=== PATIENT | male | born 1950 | race Caucasian/White ===

== ENCOUNTER 2019-05-12 12:46 | Outpatient (CLI) | payer OTHER, SELFPAY ==
--- NOTE | 2019-05-12 12:56 | CT_ITS ---
WS: [id number] CT ABDOMEN AND PELVIS WITH CONTRAST HISTORY: PAPILLARY UROTHELIAL CARCINOMA TECHNIQUE: Imaging performed of the abdomen and pelvis with IV contrast. Single phase imaging of the abdomen. Coronal and sagittal reformats are submitted. All CT scans at [facility] use at least one of these dose optimization techniques: automated exposure control; mA and/or kV adjustment per patient size (includes targeted exams where dose is matched to clinical indication); or iterativ e reconstruction. IV CONTRAST: Visipaque 320; 95 mL IV. Oral contrast: No DLP: 1456.68 mGy.cm COMPARISON: 01/20/2019 Lower thorax: Lung bases are clear. Heart is normal size. No hiatal hernia. Liver/biliary system: Normal size with no intrahepatic dilatation. Gallbladder: Normal. No gallstones or wall thickening. No pericholecystic fluid. Pancreas: Normal. Spleen: Normal. Adrenal glands: Normal. Right kidney: Status post RIGHT nephrectomy. No mass of the renal bed. Left kidney: Normal. Aorta: Mild atherosclerosis. Calcified plaque and intimal thickening. No aneurysm. Calcified plaque a t the origin of the LEFT renal artery. Lymphadenopathy: None. Free fluid: None. GI tract: Unremarkable. Abdominal wall: Small fat-containing umbilical hernia. Pelvis: Normal. Bones: Prior LEFT hip arthroplasty. CT/CT abdomen pelvis w con* [id number] IMPRESSION: 1. Status post RIGHT nephrectomy. No recurrent mass or adenopathy in the renal bed. 2. Negative LEFT kidney. 3. Mild atherosclerosis aorta. No aneurysm.
[2019-05-12] MEDS: iohexol 300 mg/mL 50 mL Btl PO (13:12)
[2019-05-12 13:56] LABS: Basophils # 0.1 10^3/uL (0.0-0.1); Basophils % 0.7 %; Eosinophils # 0.2 10^3/uL (0.0-0.8); Eosinophils % 2.6 %; Hematocrit 41.8 % (42.0-52.0); Hemoglobin 14.2 g/dL (11.7-16.6); Lymphocytes # 2.1 10^3/uL (0.8-4.8); Lymphocytes % 29.8 %; Mean Corpuscular Hemoglobin 32.6 pg (28.0-34.0); Mean Corpuscular Volume 95.9 fL (80-94); Mean Platelet Volume 11.2 fL (7.4-10.4); Monocytes # 0.7 10^3/uL (0.2-0.9); Monocytes % 9.3 %; Neutrophils # 4.1 10^3/uL (1.8-7.7); Neutrophils % 57.3 %; Nucleated Red Blood Cells % 0 %; Platelet Count 236 10^3/cmm (130-400); Red Blood Count 4.36 10^6/uL (4.1-5.3); Red Cell Distribution Width 11.9 % (12.1-15.1); White Blood Count 7.2 10^3/uL (4.0-10.0)
[2019-05-12 14:05] LABS: Alanine Aminotransferase 13 U/L (0-41); Alkaline Phosphatase 110 IU/L (40-130); Anion Gap 15.3 (5-19); Aspartate Amino Transferase 20 U/L (0-40); Blood Urea Nitrogen 19 mg/dL (8-23); Calcium 9.8 mg/dL (8.5-10.5); Carbon Dioxide 27 mmol/L (22-29); Chloride 101 mmol/L (98-107); Globulin 3.4 g/dL (1.3-4.6); Glomerular Filtration Rate 50.5 mL/min (90-130); Glucose 110 mg/dL (65-115); Potassium 4.3 mmol/L (3.5-5.1); Sodium 139 mmol/L (136-145); Total Bilirubin 0.5 mg/dL (0.15-1.2); Total Protein 7.4 g/dL (6.6-8.7)
[2019-05-12] MEDS: iodixanol 320 mg/mL 100mL Btl IV (14:27)
== END 2019-05-12 12:47 | disposition home or self-care (01) ==
LOC: CT 12:48
PROVIDERS: Family Provider Emergency Medicine Emergency Medical Services; PCP Emergency Medicine Emergency Medical Services; Visit Provider Internal Medicine Hematology & Oncology
DX: C65.1 Malignant neoplasm of right renal pelvis (principal); I25.10 Atherosclerotic heart disease of native coronary artery without angina pectoris; Z90.5 Acquired absence of kidney
CPT/HCPCS: 36415; 74177; 80053; 85025

== ENCOUNTER 2019-05-14 13:06 | Outpatient (CLI) | payer OTHER, SELFPAY ==
--- NOTE | 2019-05-14 14:11 | ONC FU_ITS ---
Dr. Jimenes follow up note Patient: Gordon Frost Unit #: [id number]: 1950 Dicatated By: Jimi Jimenes M.D.Date of Visit:May 14, 2019 Onc Med Follow-up/Prog Note History of Present Illness: Mr. Gordon frost, is a 69-year-old gentleman with history of microhematuria, underwent cystoscope evaluation which showed rare groups of urothelial cells with mild atypia, suspicious for low-grade papillary lesion. further evaluation including CT scan of abdomen pelvis was done on 07/17/2018 showed questionable right mid kidney posterior calyceal soft tissue prominence. And on 07/25/2018 patient underwent cystoscopy with right retrograde ureteropyelogram and right flexible ureteroscopy with biopsy by Dr. Gilbert. Which showed high-grade papillary urothelial carcinoma, patient underwent right nephroureterectomy on 09/06/2018 and final pathology report showed 3.2 x 1.5 x 1 cm papillary urothelial carcinoma, invasive high-grade and tumor invades renal parenchyma. Surgical margins clear. No lymphovascular invasion seen. No lymph nodes were assessed. Patient tolerated procedure well Postoperatively developed urine retention and severe lower abdominal pain requiring catheterization and still using it Patient is hard of hearing, he is a , said hearing loss is a job-related problem. Pathology was reviewed at pathology department at [facility] on 10/14/2018 as a part of consult and it confirmed that there was no renal parenchymal involvement thus lesion was downgraded to T2 from T3 originally from [place] biopsy report. Due to that he was not a candidate for adjuvant Keytruda clinical trial. And Dr. Flanagan recommended observation alone. Follow-up CT scan of abdomen pelvis done on 01/21/2019 showed status post right nephrectomy since prior study done on 07/17/2018 No adenopathy or residual mass in the right renal bed No adenopathy ascites or metastatic disease seen. Follow-up CT scan of the abdomen pelvis done on 05/12/2019 showed status post right nephrectomy, no concurrent mass or adenopathy in the renal bed. Negative left kidney. Came for follow-up, denies any specific complaints, no nausea vomiting, no fever or chills, no hematuria or dysuria, no abdominal pain or bony pains. Recently underwent CT scan of abdomen pelvis, and he is here to discuss. Medications: Amoxicillin-Pot Clavulanate 1 Tablet (of 875-125 mg) Oral q 12 hours for 7 days, Omeprazole 1 Capsule (of 20 mg) Capsule Delayed Release Oral daily, traZODone HCl 0.5 Tablet (of 50 mg) Oral at bedtime Allergies: No Known Allergies. Review of Systems: Constitutional - Appetite is fair and weight is stable. No fever, chills, hot flashes, or night sweats. Energy level is fair, ENMT - No sinus congestion/drainage. No mouth sores. No sore throat or difficulty swallowing, Hematologic/Lymphatic - No abnormal bruising or bleeding, Respiratory - No shortness of breath. No cough. No pleuritic pain or hemoptysis, Cardiovascular - No angina pain. No palpitations, Gastrointestinal - No nausea or vomiting. Positive for heartburn, no acid reflux. No diarrhea or constipation. No blood in the stool or black stools, Genitourinary (M) - Pt denies any urinary issues, Musculoskeletal - Joint stiffness, Neurologic - No headache or dizziness. No numbness/paresthesias or other focal neurologic symptoms, Psychiatric - Positive for stress/anxiety, no depression. No insomnia. Vital Signs: Performed on May 14, 2019 13:15 Height - 73.00 in Weight - 195.0 lbs BSA - 2.13 sq.m BMI - 25.73 Temperature - 99.0 F (HIGH) Pulse - 71 /min Respiration - 18 /min BP - 140/85 mm(hg) O2 Sat - 98 % Pain - 0 Performance Status: 0 - Fully active, able to carry on all predisease activities without restrictions. (ECOG) Physical Examination: ENMT - No oral exudates, ulcers, masses, thrush or mucositis. Oropharynx clear. Tongue normal, Respiratory - Lungs are clear to auscultation without rhonchi or wheezing, Cardiovascular - Regular rate and rhythm of heart, Abdomen - Non-tender, non-distended, Good bowel sounds. No guarding or rebound tenderness. No pulsatile masses, Extremities - no edema. Lab/Imaging: Test performed on Jan 20, 2019 10:29 Ua Color STRAW Ua Appearance CLEAR Ua pH 6.5 Ua Specific [place] 1.010 Ua Glucose NORM Ua Ketones NEG Ua Protein NEG Ua Blood NEG Ua Bilirubin NEG Colored urine samples may result in false positive dipstick reactions. Ua Nitrites NEG Ua Leukocyte Esterase NEG Ua Micro: WBC NONE /hpf Ua Micro: RBC NONE /hpf Ua Micro: Squam Epith Cells RARE /hpf Ua Micro: Bacteria TRACE Ua Micro: Mucous TRACE Test performed on Jan 20, 2019 10:24 Sodium 140 mmol/L Potassium 4.4 mmol/L Chloride 103 mmol/L CO2 26 mmol/L Anion Gap 15.4 BUN 18 mg/dL Creatinine 1.4 mg/dL Cr Clearance (Est) 64.94 mL/min eGFR 50.7 mL/min Glucose 110 mg/dl Calcium 9.9 mg/dL Protein, Total 7.1 g/dL Albumin 5.0 g/dL Globulin 2.1 gm/dL Bilirubin, Total 0.2 mg/dL ALT (SGPT) 21 U/L AST (SGOT) 24 U/L Alkaline Phosphatase 102 U/L RBC 4.49 10 6/cmm HGB 14.4 g/dl HCT 41.6 % MCH 32.2 pg MCHC 34.7 g/dl RDW 12.9 % Platelet Count 224 10 3/cmm MPV 9.2 fl Neutrophils 3.3 10 3/cmm Lymphocytes 1.9 10 3/cmm Monocytes 0.6 10 3/cmm Eosinophils 0.3 10 3/cmm Basophils 0.1 10 3/cmm Neutrophil % 53.4 % Lymphocyte % 31.2 % Monocyte % 9.2 % Eosinophil % 5.0 % Basophils % 1.2 % Impression: Papillary urothelial carcinoma, invasive, high-grade involving right renal pelvis, status post right nephroureterectomy done on 09/06/2018 Final pathology report showed 3.2 x 1.5 x 1 cm tumor involving renal pelvis, clear surgical margins T3 As per pathology consult at pathology department at [facility] done on 10/14/2018, there was no evidence of parenchymal involvement so tumor was downgraded to T2 No lymphovascular invasion seen No lymph node sampling was done Nx, MX stage III History of hearing loss now using hearing aid bilaterally^ ]Mild renal insufficiency Plan: Discussed with patient regarding his labs from 05/12/2019 shows white blood count 7.3 hemoglobin 14.2 crit 41.8 platelets 236,000 with a normal differential CMP within normal limit except creatinine 1.4 compared to 1.4 in December 2018. Clinically, patient is doing well with no signs symptoms suggestive of recurrence of disease and his follow-up CT scan scan of abdomen pelvis done on 05/12/2019 showed no evidence of recurrence of disease. His lab workup is within normal range except mild but stable renal insufficiency. Patient is scheduled see Dr. Fields regulatory internship for evaluation and management of mild renal insufficiency. Patient return to clinic in 4 months with CBC CMP and CT scan of abdomen pelvis with low-dose contrast and renal precautions. Signed By: Jimi Jimenes M.D. <<Signature on File>>
== END 2019-05-14 13:07 | disposition home or self-care (01) ==
LOC: ONCMED 13:09
PROVIDERS: Family Provider Emergency Medicine Emergency Medical Services; PCP Emergency Medicine Emergency Medical Services; Visit Provider Internal Medicine Hematology & Oncology
DX: Z08 Encounter for follow-up examination after completed treatment for malignant neoplasm (principal); Z85.528 Personal history of other malignant neoplasm of kidney; R33.9 Retention of urine, unspecified; N18.2 Chronic kidney disease, stage 2 (mild); Z90.5 Acquired absence of kidney
CPT/HCPCS: G0463

== ENCOUNTER 2019-09-11 07:55 | Outpatient (CLI) | payer OTHER, SELFPAY ==
[2019-09-11] MEDS: sodium chloride 0.9% 500 ML IV (08:20)
[2019-09-11 08:28] LABS: Basophils # 0.1 10^3/uL (0.0-0.1); Basophils % 1.3 %; Eosinophils # 0.3 10^3/uL (0.0-0.8); Eosinophils % 5.1 %; Hematocrit 43.3 % (42.0-52.0); Hemoglobin 14.7 g/dL (11.7-16.6); Lymphocytes # 1.9 10^3/uL (0.8-4.8); Mean Corpuscular HGB Conc 33.9 g/dL (30.0-36.0); Mean Corpuscular Hemoglobin 31.7 pg (28.0-34.0); Mean Corpuscular Volume 93.3 fL (80-94); Monocytes # 0.7 10^3/uL (0.2-0.9); Monocytes % 10.7 %; Neutrophils # 3.3 10^3/uL (1.8-7.7); Neutrophils % 52.7 %; Nucleated Red Blood Cells % 0 %; Platelet Count 257 10^3/cmm (130-400); Red Blood Count 4.64 10^6/uL (4.1-5.3); White Blood Count 6.3 10^3/uL (4.0-10.0)
[2019-09-11 08:41] LABS: Alanine Aminotransferase 21 U/L (0-41); Albumin Level 4.3 g/dL (3.5-5.2); Alkaline Phosphatase 111 IU/L (40-130); Anion Gap 15.2 (5-19); Aspartate Amino Transferase 26 U/L (0-40); Blood Urea Nitrogen 20 mg/dL (8-23); Calcium 9.5 mg/dL (8.5-10.5); Carbon Dioxide 26 mmol/L (22-29); Chloride 102 mmol/L (98-107); Glomerular Filtration Rate 55.1 mL/min (90-130); Glucose 107 mg/dL (65-115); Osmolality Calculated 285 mOsm/kg (285-295); Potassium 4.2 mmol/L (3.5-5.1); Sodium 139 mmol/L (136-145); Total Bilirubin 0.3 mg/dL (0.15-1.2); Total Protein 7.3 g/dL (6.6-8.7)
--- NOTE | 2019-09-11 09:26 | CT_ITS ---
WS: [id number] CT abdomen pelvis w con* [id number] REASON FOR EXAM: PAPILLARY UROTHELIAL CARCINIOMA IV CONTRAST ADMINISTERED: Omnipaque 300, 95 mL. TOTAL EXAM DLP: 1227.[address] scans at [facility] use at least one of these dose optimization techniques: automat ed exposure control; mA and/or kV adjustment per patient size (includes targeted exams where dose is matched to clinical indication); or iterative reconstruction. FINDINGS: The lung bases and lower mediastinum were normal. The liver show normal attenuation changes no enhancing masses are seen. The gallbladder was normal no stones. The head, body, tail of pancreas were normal. The stomach spleen were normal. The right and left adrenal glands were normal. There is surgical absence of the left kidney. There is no recurrent lesion seen in the fossa on the r ight side there is: Showing fecal stasis in the area. The appendix was normal. The small bowel pattern show no abnormalities. The left colon was normal. The urinary bladder was normal The arthroplasty changes of the left hip. The bony pelvis show no destructive changes. The lumbar spine show normal architecture no metastatic changes. CT/CT abdomen pelvis w con* [id number] IMPRESSION: Comparison to previous exam exposed 07/11/2019 there is evidence of nephrectomy changes on the right with no recurrent lesion seen. The left kidney again is seen to be normal. No evidence to suggest metastatic disease.
[2019-09-11] MEDS: iohexol 300 mg/mL 100 mL Btl IV (10:58)
== END 2019-09-11 07:56 | disposition home or self-care (01) ==
LOC: ONCMED 07:56
PROVIDERS: PCP Emergency Medicine Emergency Medical Services; Visit Provider Internal Medicine Hematology & Oncology
DX: C65.1 Malignant neoplasm of right renal pelvis (principal); N40.1 Benign prostatic hyperplasia with lower urinary tract symptoms; R35.0 Frequency of micturition; R39.15 Urgency of urination; K21.9 Gastro-esophageal reflux disease without esophagitis; H91.93 Unspecified hearing loss, bilateral; G47.00 Insomnia, unspecified; M19.90 Unspecified osteoarthritis, unspecified site
CPT/HCPCS: 74177; 80053; 85025; 96360; J7040; Q9967

== ENCOUNTER 2019-09-15 13:14 | Outpatient (CLI) | payer OTHER, SELFPAY ==
--- NOTE | 2019-09-15 13:54 | ONC FU_ITS ---
Dr. Jimenes follow up note Patient: Gordon Frost Unit #: [id number]: 1950 Dicatated By: Jimi Jimenes M.D.Date of Visit:Sep 15, 2019 Onc Med Follow-up/Prog Note History of Present Illness: Mr. Gordon frost, is a 69-year-old gentleman with history of microhematuria, underwent cystoscope evaluation which showed rare groups of urothelial cells with mild atypia, suspicious for low-grade papillary lesion. further evaluation including CT scan of abdomen pelvis was done on 07/17/2018 showed questionable right mid kidney posterior calyceal soft tissue prominence. And on 07/25/2018 patient underwent cystoscopy with right retrograde ureteropyelogram and right flexible ureteroscopy with biopsy by Dr. Gilbert. Which showed high-grade papillary urothelial carcinoma, patient underwent right nephroureterectomy on 09/06/2018 and final pathology report showed 3.2 x 1.5 x 1 cm papillary urothelial carcinoma, invasive high-grade and tumor invades renal parenchyma. Surgical margins clear. No lymphovascular invasion seen. No lymph nodes were assessed. Patient tolerated procedure well Postoperatively developed urine retention and severe lower abdominal pain requiring catheterization and still using it Patient is hard of hearing, he is a , said hearing loss is a job-related problem. Pathology was reviewed at pathology department at [facility] on 10/14/2018 as a part of consult and it confirmed that there was no renal parenchymal involvement thus lesion was downgraded to T2 from T3 originally from [place] biopsy report. Due to that he was not a candidate for adjuvant Keytruda clinical trial. And Dr. Flanagan recommended observation alone. Follow-up CT scan of abdomen pelvis done on 01/21/2019 showed status post right nephrectomy since prior study done on 07/17/2018 No adenopathy or residual mass in the right renal bed No adenopathy ascites or metastatic disease seen. Follow-up CT scan of the abdomen pelvis done on 05/12/2019 showed status post right nephrectomy, no concurrent mass or adenopathy in the renal bed. Negative left kidney. Follow-up CT done on September 11, 2019 showed no evidence of recurrence of disease status post right nephrectomy Patient was seen by Dr. Fields of nephrology on August 26, 2019 and his impression was prognosis for his renal function should be excellent Came for follow-up, denies any specific complaints, no fever chills, no nausea or vomiting, no diarrhea or constipation, no hemoptysis or hematemesis, no new bony pains, appetite is good weight is stable Medications: Amoxicillin-Pot Clavulanate 1 Tablet (of 875-125 mg) Oral q 12 hours for 7 days, Omeprazole 1 Capsule (of 20 mg) Capsule Delayed Release Oral daily, traZODone HCl 0.5 Tablet (of 50 mg) Oral at bedtime Allergies: No Known Allergies. Review of Systems: Constitutional - Appetite is fair and weight is stable. No fever, chills, hot flashes, or night sweats. Energy level is fair, ENMT - No sinus congestion/drainage. No mouth sores. No sore throat or difficulty swallowing, Hematologic/Lymphatic - No abnormal bruising or bleeding, Respiratory - No shortness of breath. No cough. No pleuritic pain or hemoptysis, Cardiovascular - No angina pain. No palpitations, Gastrointestinal - No nausea or vomiting. Positive for heartburn, no acid reflux. No diarrhea or constipation. No blood in the stool or black stools, Genitourinary (M) - Pt denies any urinary issues, Musculoskeletal - Joint stiffness, Neurologic - No headache or dizziness. No numbness/paresthesias or other focal neurologic symptoms, Psychiatric - Positive for stress/anxiety, no depression. No insomnia. Vital Signs: Performed on Sep 15, 2019 13:28 Height - 73.00 in Weight - 193.0 lbs (LOW) BSA - 2.12 sq.m BMI - 25.46 Temperature - 98.6 F Pulse - 74 /min Respiration - 18 /min BP - 127/84 mm(hg) O2 Sat - 98 % Pain - 0 Performance Status: 0 - Fully active, able to carry on all predisease activities without restrictions. (ECOG) Physical Examination: ENMT - No mouth sores, no thrush, no jaundice, Respiratory - Lungs are clear, Cardiovascular - Regular rate and rhythm of heart, Abdomen - Soft, bowel sounds present, Extremities - No visible edema or rash. Lab/Imaging: Test performed on Sep 11, 2019 08:15 Sodium 139 mmol/L Potassium 4.2 mmol/L Chloride 102 mmol/L CO2 26 mmol/L Anion Gap 15.2 BUN 20 mg/dL Creatinine 1.3 mg/dL Cr Clearance (Est) 68.9900 mL/min eGFR 55.1 mL/min Glucose 107 mg/dL Calcium 9.5 mg/dL Protein, Total 7.3 g/dL Albumin 4.3 g/dL Globulin 3.0 g/dL Bilirubin, Total 0.3 mg/dL ALT (SGPT) 21 U/L AST (SGOT) 26 U/L Alkaline Phosphatase 111 IU/L WBC 6.3 10 3/uL RBC 4.64 10 6/uL HGB 14.7 g/dL HCT 43.3 % MCV 93.3 fL MCH 31.7 pg MCHC 33.9 g/dL RDW 12.0 % Platelet Count 257 10 3/cmm MPV 11.0 fL Neutrophils 3.3 10 3/uL Lymphocytes 1.9 10 3/uL Monocytes 0.7 10 3/uL Eosinophils 0.3 10 3/uL Basophils 0.1 10 3/uL Neutrophil % 52.7 % Lymphocyte % 30.0 % Monocyte % 10.7 % Eosinophil % 5.1 % Basophils % 1.3 % NRBC % 0 % Impression: Papillary urothelial carcinoma, invasive, high-grade involving right renal pelvis, status post right nephroureterectomy done on 09/06/2018 Final pathology report showed 3.2 x 1.5 x 1 cm tumor involving renal pelvis, clear surgical margins T3 As per pathology consult at pathology department at [facility] done on 10/14/2018, there was no evidence of parenchymal involvement so tumor was downgraded to T2 No lymphovascular invasion seen No lymph node sampling was done Nx, MX stage III History of hearing loss now using hearing aid bilaterally Plan: Discussed with patient regarding his labs white blood count 6.3 hemoglobin 14.7 crit 43.3 platelets 257,000 CMP within normal limits except creatinine 1.[address] scan of abdomen pelvis which showed no recurrence of disease Clinically, patient is doing well with no signs symptom suggestive of recurrence of disease. His follow-up lab work-up is within normal range except mildly elevated creatinine but stable, was seen by nephrology recently and their impression was mildly elevated creatinine was due to the nephron loss. The prognosis for renal function should be excellent patient was advised to avoid nephrotoxic medicine. Follow-up CT scan of abdomen pelvis done recently showed no evidence of recurrence of disease. Patient return to clinic in 6 months with CMP and CT scan of abdomen pelvis Signed By: Jimi Jimenes M.D. <<Signature on File>>
== END 2019-09-15 13:15 | disposition home or self-care (01) ==
LOC: ONCMED 13:17
PROVIDERS: PCP Emergency Medicine Emergency Medical Services; Visit Provider Internal Medicine Hematology & Oncology
DX: Z08 Encounter for follow-up examination after completed treatment for malignant neoplasm (principal); Z85.53 Personal history of malignant neoplasm of renal pelvis; R94.4 Abnormal results of kidney function studies; H91.93 Unspecified hearing loss, bilateral
CPT/HCPCS: G0463

== ENCOUNTER 2020-02-27 08:55 | Outpatient (CLI) | payer OTHER, SELFPAY ==
[2020-02-27] MEDS: sodium chloride 0.9% 500 ML 999 ML IV (09:15)
--- NOTE | 2020-02-27 10:06 | CT_ITS ---
WS: [id number] CT ABDOMEN PELVIS TECHNIQUE: Contrast-enhanced CT of the abdomen and pelvis with coronal and sagittal reformatted image s. CLINICAL INFORMATION: PAPILLARY UROTHELIAL CARCINOMA COMPARISON: CT 09/11/2019 and 05/12/2019. CT 10 28,019 DLP: 961.[address] scans at [facility] use at least one of these dose optimization techniques: automat ed exposure control; mA and/or kV adjustment per patient size (includes targeted exams where dose is matched to clinical indication); or iterative reconstruction. FINDINGS: Mild diffuse fatty infiltration of the liver. Normal portal vein and splenic veins. Normal gallbladde r. Lung bases are well aerated. Normal GE junction. Normal pancreas. Normal left renal parenchymal en hancement. Prior right nephrectomy. Normal nephrectomy bed. Adrenal glands are normal. Normal caliber abdominal aorta. Aortic calcification. Sigmoid diverticulosis. No evidence of acute di verticulitis. No evidence of small or large bowel obstruction. No periaortic or retroperitoneal lymph adenopathy. No pelvic lymphadenopathy. No inguinal lymphadenopathy. Postoperative changes left SMITHA. Fat-containing umbilical hernia. CT/CT abdomen pelvis w con* [id number] IMPRESSION: 1. No evidence of metastatic disease in the abdomen or pelvis. 2. Prior postoperative changes right nephrectomy. Normal nephrectomy bed. 3. Adrenal glands are normal. Normal left renal parenchymal enhancement. 4. Mild diffuse fatty infiltration of the liver. 5. Sigmoid diverticulosis.
[2020-02-27] MEDS: iohexol 300 mg/mL 50 mL Btl PO (10:32)
[2020-02-27 10:47] LABS: Blood Urea Nitrogen 19 mg/dL (8-23); Glomerular Filtration Rate 54.9 mL/min (90-130)
[2020-02-27] MEDS: iodixanol 320 mg/mL 100mL Btl IV (11:55)
== END 2020-02-27 08:56 | disposition home or self-care (01) ==
PROVIDERS: PCP Emergency Medicine Emergency Medical Services; Visit Provider Internal Medicine Hematology & Oncology
DX: C65.1 Malignant neoplasm of right renal pelvis (principal); K76.0 Fatty (change of) liver, not elsewhere classified; K57.30 Diverticulosis of large intestine without perforation or abscess without bleeding
CPT/HCPCS: 36415; 74177; 82565; 84520; 96360; J7040; Q9967

== ENCOUNTER 2020-03-02 05:30 | Outpatient (CLI) | payer OTHER, SELFPAY ==
--- NOTE | 2020-03-02 13:45 | ONC FU_ITS ---
Dr. Jimenes follow up note Patient: Gordon Frost Unit #: [id number]: 1950 Dicatated By: Jimi Jimenes M.D.Date of Visit:Mar 02, 2020 Onc Med Follow-up/Prog Note History of Present Illness: Mr. Gordon frost, is a 70-year-old gentleman with history of microhematuria, underwent cystoscope evaluation which showed rare groups of urothelial cells with mild atypia, suspicious for low-grade papillary lesion. further evaluation including CT scan of abdomen pelvis was done on 07/17/2018 showed questionable right mid kidney posterior calyceal soft tissue prominence. And on 07/25/2018 patient underwent cystoscopy with right retrograde ureteropyelogram and right flexible ureteroscopy with biopsy by Dr. Gilbert. Which showed high-grade papillary urothelial carcinoma, patient underwent right nephroureterectomy on 09/06/2018 and final pathology report showed 3.2 x 1.5 x 1 cm papillary urothelial carcinoma, invasive high-grade and tumor invades renal parenchyma. Surgical margins clear. No lymphovascular invasion seen. No lymph nodes were assessed. Patient tolerated procedure well Postoperatively developed urine retention and severe lower abdominal pain requiring catheterization and still using it Patient is hard of hearing, he is a , said hearing loss is a job-related problem. Pathology was reviewed at pathology department at [facility] on 10/14/2018 as a part of consult and it confirmed that there was no renal parenchymal involvement thus lesion was downgraded to T2 from T3 originally from [place] biopsy report. Due to that he was not a candidate for adjuvant Keytruda clinical trial. And Dr. Flanagan recommended observation alone. Follow-up CT scan of abdomen pelvis done on 01/21/2019 showed status post right nephrectomy since prior study done on 07/17/2018 No adenopathy or residual mass in the right renal bed No adenopathy ascites or metastatic disease seen. Follow-up CT scan of the abdomen pelvis done on 05/12/2019 showed status post right nephrectomy, no concurrent mass or adenopathy in the renal bed. Negative left kidney. Follow-up CT done on September 11, 2019 showed no evidence of recurrence of disease status post right nephrectomy Patient was seen by Dr. Fields of nephrology on August 26, 2019 and his impression was prognosis for his renal function should be excellent Follow-up CT scan of abdomen pelvis done on February 27, 2020 showed no evidence of metastatic disease in the abdomen or pelvis, postoperative changes right nephrectomy, normal nephrectomy bed. Sigmoid diverticulosis. Mild diffuse fatty infiltration of the liver Came for follow-up, denies any specific complaints, no fever chills, no nausea or vomiting, no diarrhea constipation, no hematuria, no abdominal or pelvic pain. Appetite is good no weight loss. Medications: Amoxicillin-Pot Clavulanate 1 Tablet (of 875-125 mg) Oral q 12 hours for 7 days, Omeprazole 1 Capsule (of 20 mg) Capsule Delayed Release Oral daily, traZODone HCl 0.5 Tablet (of 50 mg) Oral at bedtime Allergies: No Known Allergies. Review of Systems: Constitutional - Appetite is fair and weight is stable. No fever, chills, hot flashes, or night sweats. Energy level is excellent. , ENMT - No sinus congestion/drainage. No mouth sores. No sore throat or difficulty swallowing, Hematologic/Lymphatic - No abnormal bruising or bleeding, Respiratory - No shortness of breath. No cough. No pleuritic pain or hemoptysis, Cardiovascular - No angina pain. No palpitations, Gastrointestinal - No nausea or vomiting. Positive for heartburn, no acid reflux. No diarrhea or constipation. No blood in the stool or black stools, Genitourinary (M) - Pt denies any urinary issues, Musculoskeletal - Joint stiffness, Neurologic - No headache or dizziness. No numbness/paresthesias or other focal neurologic symptoms, Psychiatric - Positive for stress/anxiety, no depression. No insomnia. Vital Signs: Performed on Mar 02, 2020 13:15 Height - 73.00 in Weight - 181.2 lbs (LOW) BSA - 2.06 sq.m BMI - 23.91 Temperature - 98.7 F Pulse - 62 /min Respiration - 18 /min BP - 131/84 mm(hg) O2 Sat - 97 % Pain - 0 Performance Status: 0 - Fully active, able to carry on all predisease activities without restrictions. (ECOG) Physical Examination: ENMT - No mouth sores, no thrush, no jaundice, Respiratory - Lungs are clear to auscultation, Cardiovascular - Regular rate and rhythm of heart, Abdomen - Soft, bowel sounds present, Extremities - No visible edema or rash. Lab/Imaging: Test performed on Feb 27, 2020 10:20 BUN 19 mg/dL Creatinine 1.3 mg/dL Cr Clearance (Est) 67.3400 mL/min eGFR 54.9 mL/min Test performed on Sep 11, 2019 08:15 Sodium 139 mmol/L Potassium 4.2 mmol/L Chloride 102 mmol/L CO2 26 mmol/L Anion Gap 15.2 Glucose 107 mg/dL Calcium 9.5 mg/dL Protein, Total 7.3 g/dL Albumin 4.3 g/dL Globulin 3.0 g/dL Bilirubin, Total 0.3 mg/dL ALT (SGPT) 21 U/L AST (SGOT) 26 U/L Alkaline Phosphatase 111 IU/L WBC 6.3 10 3/uL RBC 4.64 10 6/uL HGB 14.7 g/dL HCT 43.3 % MCV 93.3 fL MCH 31.7 pg MCHC 33.9 g/dL RDW 12.0 % Platelet Count 257 10 3/cmm MPV 11.0 fL Neutrophils 3.3 10 3/uL Lymphocytes 1.9 10 3/uL Monocytes 0.7 10 3/uL Eosinophils 0.3 10 3/uL Basophils 0.1 10 3/uL Neutrophil % 52.7 % Lymphocyte % 30.0 % Monocyte % 10.7 % Eosinophil % 5.1 % Basophils % 1.3 % NRBC % 0 % Impression: Papillary urothelial carcinoma, invasive, high-grade involving right renal pelvis, status post right nephroureterectomy done on 09/06/2018 Final pathology report showed 3.2 x 1.5 x 1 cm tumor involving renal pelvis, clear surgical margins T3 As per pathology consult at pathology department at [facility] done on 10/14/2018, there was no evidence of parenchymal involvement so tumor was downgraded to T2 No lymphovascular invasion seen No lymph node sampling was done Nx, MX stage III History of hearing loss now using hearing aid bilaterally Plan: Discussed with patient regarding his labs creatinine 1.3 compared to 1.3 on September 11, 2019, and follow-up CT scan of abdomen pelvis which showed no evidence of recurrence of disease Clinically, patient doing well with no signs symptom suggestive of recurrence of disease, patient enjoying his quality of life, very active. Mild renal insufficiency now being followed by Dr. Fields, billet cutter. We will continue to monitor and he will return to clinic in 6 months with CBC CMP and if lab work-up shows any abnormality or patient has any new symptoms will consider follow-up CT scan. Signed By: Jimi Jimenes M.D. <<Signature on File>>
== END 2020-03-02 05:31 | disposition home or self-care (01) ==
LOC: ONCMED 05:31
PROVIDERS: PCP Emergency Medicine Emergency Medical Services; Visit Provider Internal Medicine Hematology & Oncology
DX: Z08 Encounter for follow-up examination after completed treatment for malignant neoplasm (principal); Z85.53 Personal history of malignant neoplasm of renal pelvis; N18.9 Chronic kidney disease, unspecified; H91.93 Unspecified hearing loss, bilateral; Z97.4 Presence of external hearing-aid
CPT/HCPCS: G0463

== ENCOUNTER 2020-09-15 09:55 | Outpatient (CLI) | payer OTHER, SELFPAY ==
[2020-09-15 10:17] LABS: Basophils # 0.1 10^3/uL (0.0-0.1); Basophils % 1.7 %; Eosinophils # 0.2 10^3/uL (0.0-0.8); Eosinophils % 3.9 %; Hematocrit 44.5 % (42.0-52.0); Lymphocytes # 1.5 10^3/uL (0.8-4.8); Lymphocytes % 27.3 %; Mean Corpuscular HGB Conc 33.7 g/dL (30.0-36.0); Mean Corpuscular Hemoglobin 31.9 pg (28.0-34.0); Mean Corpuscular Volume 94.7 fL (80-94); Monocytes # 0.6 10^3/uL (0.2-0.9); Monocytes % 10.6 %; Neutrophils # 3.04 10^3/uL (1.8-7.7); Neutrophils % 56.3 %; Nucleated Red Blood Cells % 0 %; Platelet Count 229 10^3/cmm (130-400); Red Cell Distribution Width 11.9 % (12.1-15.1); White Blood Count 5.4 10^3/uL (4.0-10.0)
[2020-09-16 18:03] LABS: Alternaria Alternata (M6) Ige 1.91 kU/L; Alternaria Class 2; Cat Dander (E1) Ige <0.10 kU/L; Cat Dander Class 0; Common Ragweed (Short) (W1) Ig <0.10 kU/L; D. Farinae Class 0; Dermatophagoides Class 0; Dermatophagoides Farinae (D2) <0.10 kU/L; Dermatophagoides Pteronyssinus <0.10 kU/L; Dog Dander (E5) Ige 0.38 kU/L; Dog Dander Class 1; Elm Class 0/1; English Plantain (W9) Ige <0.10 kU/L; English Plantain Class 0; House Dust (Greer) (H1) Ige 0.11 kU/L; House Dust (Hollister- Stier) <0.10 kU/L; House Dust Class 0; House Dust Class 0/1; Immunoglobulin E 80 kU/L (<OR=114); Lamb'S Quarters (Goose Foot) <0.10 kU/L; Lamb'S Quarters Class 0; Maple (Box Elder) (T1) Ige <0.10 kU/L; Maple Class 0; Mucor Racemosus Class 0; Oak (T7) Ige <0.10 kU/L; Oak Class 0; Penicillium Class 0; Penicillium Notatum (M1) Ige <0.10 kU/L; Ragweeed Class 0; Rough Marsh Elder (W16) Ige 0.14 kU/L; Rough Marsh Elder Class 0/1
[2020-09-17 17:23] LABS: Bermuda Class 0/1; Bermuda Grass (G2) Ige 0.22 kU/L; Johnson Grass (G10) Ige 0.11 kU/L; Johnson Grass Cl 0/1; June Grass Class 1; June Grass(Kentucky Blue) (G8) 0.47 kU/L; Meadow Fescue (G4) Ige 0.43 kU/L; Meadow Fescue Class 1; Perennial Rye Grass (G5) Ige 0.35 kU/L; Perennial Rye Grass Class 1; Sweet Vernal Class 0/1; Sweet Vernal Grass (G1) Ige 0.26 kU/L; Timothy Grass (G6) Ige 0.42 kU/L; Timothy Grass Class 1
[2020-09-17 23:28] LABS: Aspergillus Fumigatus, Igg Ab, 10.1 mg/L (<=102)
== END 2020-09-15 09:56 | disposition home or self-care (01) ==
PROVIDERS: PCP Emergency Medicine Emergency Medical Services; Visit Provider Internal Medicine Pulmonary Disease
DX: J30.89 Other allergic rhinitis (principal)
CPT/HCPCS: 36415; 82785; 85025; 86003

== ENCOUNTER 2020-09-21 08:21 | Outpatient (CLI) | payer OTHER, SELFPAY ==
[2020-09-21 09:04] LABS: Basophils # 0.1 10^3/uL (0.0-0.1); Basophils % 1.4 %; Eosinophils # 0.2 10^3/uL (0.0-0.8); Eosinophils % 4.2 %; Hematocrit 43.4 % (42.0-52.0); Hemoglobin 14.4 g/dL (11.7-16.6); Lymphocytes # 1.5 10^3/uL (0.8-4.8); Lymphocytes % 30.1 %; Mean Corpuscular HGB Conc 33.2 g/dL (30.0-36.0); Mean Corpuscular Hemoglobin 31.9 pg (28.0-34.0); Mean Platelet Volume 11.4 fL (7.4-10.4); Monocytes # 0.5 10^3/uL (0.2-0.9); Monocytes % 10.4 %; Neutrophils # 2.69 10^3/uL (1.8-7.7); Neutrophils % 53.7 %; Nucleated Red Blood Cells % 0 %; Platelet Count 201 10^3/cmm (130-400); Red Blood Count 4.52 10^6/uL (4.1-5.3); Red Cell Distribution Width 12.2 % (12.1-15.1)
[2020-09-21 09:11] LABS: Alanine Aminotransferase 17 U/L (0-41); Albumin Level 4.1 g/dL (3.5-5.2); Alkaline Phosphatase 79 IU/L (40-130); Anion Gap 11.2 (5-19); Aspartate Amino Transferase 20 U/L (0-40); Blood Urea Nitrogen 19 mg/dL (8-23); Calcium 8.8 mg/dL (8.5-10.5); Carbon Dioxide 27 mmol/L (22-29); Chloride 104 mmol/L (98-107); Globulin 2.4 g/dL (1.3-4.6); Glomerular Filtration Rate 60.2 mL/min (90-130); Glucose 96 mg/dL (65-115); Osmolality Calculated 288 mOsm/kg (285-295); Potassium 4.2 mmol/L (3.5-5.1); Sodium 138 mmol/L (136-145); Total Bilirubin 0.6 mg/dL (0.15-1.2); Total Protein 6.5 g/dL (6.6-8.7)
--- NOTE | 2020-09-21 10:37 | ONC FU_ITS ---
Dr. Jimenes follow up note Patient: Gordon Frost Unit #: [id number]: 1950 Dicatated By: Jimi Jimenes M.D.Date of Visit:Sep 21, 2020 Onc Med Follow-up/Prog Note History of Present Illness: Mr. Gordon frost, is a 70-year-old gentleman with history of microhematuria, underwent cystoscope evaluation which showed rare groups of urothelial cells with mild atypia, suspicious for low-grade papillary lesion. further evaluation including CT scan of abdomen pelvis was done on 07/17/2018 showed questionable right mid kidney posterior calyceal soft tissue prominence. And on 07/25/2018 patient underwent cystoscopy with right retrograde ureteropyelogram and right flexible ureteroscopy with biopsy by Dr. Gilbert. Which showed high-grade papillary urothelial carcinoma, patient underwent right nephroureterectomy on 09/06/2018 and final pathology report showed 3.2 x 1.5 x 1 cm papillary urothelial carcinoma, invasive high-grade and tumor invades renal parenchyma. Surgical margins clear. No lymphovascular invasion seen. No lymph nodes were assessed. Patient tolerated procedure well Postoperatively developed urine retention and severe lower abdominal pain requiring catheterization and still using it Patient is hard of hearing, he is a , said hearing loss is a job-related problem. Pathology was reviewed at pathology department at [facility] on 10/14/2018 as a part of consult and it confirmed that there was no renal parenchymal involvement thus lesion was downgraded to T2 from T3 originally from [place] biopsy report. Due to that he was not a candidate for adjuvant Keytruda clinical trial. And Dr. Flanagan recommended observation alone. Follow-up CT scan of abdomen pelvis done on 01/21/2019 showed status post right nephrectomy since prior study done on 07/17/2018 No adenopathy or residual mass in the right renal bed No adenopathy ascites or metastatic disease seen. Follow-up CT scan of the abdomen pelvis done on 05/12/2019 showed status post right nephrectomy, no concurrent mass or adenopathy in the renal bed. Negative left kidney. Follow-up CT done on September 11, 2019 showed no evidence of recurrence of disease status post right nephrectomy Patient was seen by Dr. Fields of nephrology on August 26, 2019 and his impression was prognosis for his renal function should be excellent Follow-up CT scan of abdomen pelvis done on February 27, 2020 showed no evidence of metastatic disease in the abdomen or pelvis, postoperative changes right nephrectomy, normal nephrectomy bed. Sigmoid diverticulosis. Mild diffuse fatty infiltration of the liver Came for follow-up, denies any specific complaints, no fever chills, no nausea or vomiting, no diarrhea or constipation, no hematuria no dysuria, no new bony pains, no abdominal pain or fullness, no jaundice, no hemoptysis or hematemesis, no headaches or blurred vision or double vision, patient is losing weight which is intentional because of hypercholesterolemia and does not want take statins. Medications: Asmanex (120 Metered Doses) 2 Puff(s) (of 220 mcg/inh) Aerosol Powder, Breath Activated Inhalation daily, Omeprazole 1 Capsule (of 20 mg) Capsule Delayed Release Oral daily, traZODone HCl 0.5 Tablet (of 50 mg) Oral at bedtime Allergies: No Known Allergies. Review of Systems: Review of Systems is not available for this patient. Vital Signs: Performed on Sep 21, 2020 09:34 Height - 73.00 in Weight - 176.4 lbs (LOW) BSA - 2.04 sq.m BMI - 23.27 Temperature - 98.2 F (LOW) Pulse - 62 /min Respiration - 17 /min BP - 130/71 mm(hg) O2 Sat - 98 % Pain - 0 Performance Status: 0 - Fully active, able to carry on all predisease activities without restrictions. (ECOG) Physical Examination: ENMT - No mouth sores, no thrush, no jaundice, no cervical lymphadenopathy, Respiratory - Lungs are clear to auscultation, Cardiovascular - Regular rate and rhythm of heart, Abdomen - Soft, bowel sounds present, Extremities - No visible edema or rash. Lab/Imaging: Most recent lab results are not available for this patient. Impression: Papillary urothelial carcinoma, invasive, high-grade involving right renal pelvis, status post right nephroureterectomy done on 09/06/2018 Final pathology report showed 3.2 x 1.5 x 1 cm tumor involving renal pelvis, clear surgical margins T3 As per pathology consult at pathology department at [facility] done on 10/14/2018, there was no evidence of parenchymal involvement so tumor was downgraded to T2 No lymphovascular invasion seen No lymph node sampling was done Nx, MX stage III History of hearing loss now using hearing aid bilaterally Plan: Discussed with patient regarding his labs 5.0 hemoglobin 14.4 hematocrit 43.4 platelets 201,000 CMP within normal limits, creatinine 1.2 compared to 1.3 previously Clinically, patient doing well with no signs symptoms just of recurrence of disease, his lab work-up is within normal range, patient return to clinic in 6 months with CBC and Follow-up CT scan of abdomen pelvis and chest x-ray Signed By: Jimi Jimenes M.D. <<Signature on File>>
== END 2020-09-21 08:22 | disposition home or self-care (01) ==
LOC: ONCMED 08:23
PROVIDERS: PCP Emergency Medicine Emergency Medical Services; Visit Provider Internal Medicine Hematology & Oncology
DX: C67.9 Malignant neoplasm of bladder, unspecified (principal); H91.93 Unspecified hearing loss, bilateral; Z79.899 Other long term (current) drug therapy
CPT/HCPCS: 36415; 80053; 85025; 99214

== ENCOUNTER → 2020-09-29 12:09 | Outpatient (BNVA) | payer OTHER, SELFPAY | PROVIDERS: PCP Emergency Medicine Emergency Medical Services; Visit Provider Internal Medicine Pulmonary Disease | DX: Z01.818 Encounter for other preprocedural examination (principal); Z20.822 Contact with and (suspected) exposure to COVID-19 | CPT/HCPCS: 87635 ==

== ENCOUNTER 2020-10-05 12:42 | Outpatient (CLI) | payer OTHER, SELFPAY ==
--- NOTE | 2020-10-05 13:22 | PFTS_ITS ---
Date of Study:10/05/20 Date of Dictation: MECHANICS: Forced vital capacity (FVC) is normal. Forced expiratory volume in one second (FEV1) is normal. FEV1/FVC is reduced. FLOW VOLUME LOOP: Mild scooping. LUNG VOLUMES: Total lung capacity (TLC) is normal. Residual volume (RV) is normal. DIFFUSING CAPACITY FOR CARBON MONOXIDE: Normal. INTERPRETATION: The prebronchodilator spirometry is consistent with mild airflow obstruction. No postbronchodilator spirometry was performed. Lung volumes are normal. Gas exchange (DLCO) is normal. MTDD
== END 2020-10-05 12:43 | disposition home or self-care (01) ==
LOC: RT 12:45
PROVIDERS: PCP Emergency Medicine Emergency Medical Services; Visit Provider Internal Medicine Pulmonary Disease
DX: R06.00 Dyspnea, unspecified (principal)
CPT/HCPCS: 94010; 94726; 94729

== ENCOUNTER 2021-04-05 08:20 | Outpatient (CLI) | payer OTHER, SELFPAY ==
--- NOTE | 2021-04-05 | CT_ITS ---
WS: [id number] CT ABDOMEN AND PELVIS WITH CONTRAST HISTORY: MALIGNANT NEOPLASM RT RENAL PELVIS TECHNIQUE: Imaging performed of the abdomen and pelvis with IV contrast. Single phase imaging of the abdomen. Coronal and sagittal reformats are submitted. All CT scans at [facility] use at [address] one of these dose optimization techniques: automated exposure control; mA and/or kV adjustment per patient size (includes targeted exams where dose is matched to clinical indication); or iterative re construction. IV CONTRAST: Visipaque 320; 95 mL IV. Oral contrast: Yes. DLP: 1132.34 mGycm COMPARISON: 02/27/2020 Lower thorax: Lung bases are clear. Heart is normal size. No hiatal hernia. Liver/biliary system: Normal size with no intrahepatic dilatation. Gallbladder: Normal. No gallstones or wall thickening. No pericholecystic fluid. Pancreas: Normal size pancreas and pancreatic duct. No adjacent inflammation. Spleen: Normal size spleen. No mass or infarct. Adrenal glands: Normal. Right kidney: Prior RIGHT nephrectomy. No recurrent mass in the RIGHT renal bed. Left kidney: Normal. No mass or hydronephrosis. Aorta: Moderate atherosclerotic changes within the aorta. Partially calcified wall with intimal thick ening. Moderate calcifications in the origins of the renal arteries. Lymphadenopathy: None. Free fluid: None. GI tract: No GI tract obstruction. The appendix is normal. There is moderate diffuse fecal retention and constipation throughout the colon. No acute diverticulitis. Abdominal wall: Unremarkable abdominal wall. No hernia. Pelvis: No free fluid in the pelvis. Beam hardening artifact from the patient's LEFT total hip arthro plasty obscures detail within the pelvis. Urinary bladder is partially obscured by the artifact. Pros bone gland is enlarged encroaching into the urinary bladder but also partially obscured. Bones: Prior LEFT hip arthroplasty. CT/CT abdomen pelvis w con* [id number] IMPRESSION: 1. Status post RIGHT nephrectomy. No recurrent mass at the renal bed. No adeno selene. 2. Normal LEFT kidney. 3. Prostate and urinary bladder being obscured by beam hardening artifact from the LEFT hip arthroplasty. 4. Mild diffuse fecal retention. No obstruction of the GI tract. 5. Moderate atherosclerosis aorta.
--- NOTE | 2021-04-05 08:49 | XR_ITS ---
WS: [id number] CHEST 2 VIEWS HISTORY: MALIGNANT NEOPLASM OF THE RIGHT RENAL PELVIS, FOLLOW UP COMPARISON: 07/22/2018 Lungs: Very slight flattening of the diaphragmatic surface and increased AP diameter. No discrete mas s or interval change. No adenopathy. Cardiac size: Normal. Mediastinum/Aorta: Mild atherosclerosis aorta. Bones: Normal. XR/XR chest 2V* [id number] IMPRESSION: No acute cardiopulmonary disease.
[2021-04-05 10:02] LABS: Blood Urea Nitrogen 21 mg/dL (8-23)
[2021-04-05 10:03] LABS: Glomerular Filtration Rate 54.7 mL/min (90-130)
[2021-04-05] MEDS: iodixanol 320 mg/mL 100mL Btl IV (14:31)
[2021-04-05] MEDS: iohexol 300 mg/mL 50 mL Btl PO (14:32)
== END 2021-04-05 08:21 | disposition home or self-care (01) ==
PROVIDERS: PCP Emergency Medicine Emergency Medical Services; Visit Provider Internal Medicine Hematology & Oncology
DX: C65.1 Malignant neoplasm of right renal pelvis (principal); Z90.5 Acquired absence of kidney; K59.00 Constipation, unspecified; I70.0 Atherosclerosis of aorta
CPT/HCPCS: 71046; 74177; 82565; 84520; Q9967

== ENCOUNTER 2021-04-12 12:24 | Outpatient (CLI) | payer OTHER, SELFPAY ==
[2021-04-12 12:56] LABS: Basophils # 0.1 10^3/uL (0.0-0.1); Basophils % 1.5 %; Eosinophils # 0.3 10^3/uL (0.0-0.8); Eosinophils % 3.8 %; Hematocrit 43.2 % (42.0-52.0); Hemoglobin 14.5 g/dL (11.7-16.6); Lymphocytes # 1.9 10^3/uL (0.8-4.8); Lymphocytes % 28.7 %; Mean Corpuscular HGB Conc 33.6 g/dL (30.0-36.0); Mean Corpuscular Volume 95.4 fl (80-94); Mean Platelet Volume 10.6 fL (7.4-10.4); Monocytes # 0.8 10^3/uL (0.2-0.9); Monocytes % 11.9 %; Neutrophils # 3.54 10^3/uL (1.8-7.7); Neutrophils % 53.8 %; Nucleated Red Blood Cells % 0 %; Platelet Count 211 10^3/cmm (130-400); Red Blood Count 4.53 10^6/uL (4.1-5.3); Red Cell Distribution Width 12.4 % (12.1-15.1); White Blood Count 6.6 10^3/uL (4.0-10.0)
[2021-04-12 13:22] LABS: Alanine Aminotransferase 20 U/L (0-41); Albumin Level 4.4 g/dL (3.5-5.2); Alkaline Phosphatase 93 IU/L (40-130); Anion Gap 16.4 (5-19); Aspartate Amino Transferase 23 U/L (0-40); Blood Urea Nitrogen 23 mg/dL (8-23); Calcium 8.7 mg/dL (8.5-10.5); Carbon Dioxide 25 mmol/L (22-29); Chloride 100 mmol/L (98-107); Globulin 2.4 g/dL (1.3-4.6); Glucose 84 mg/dL (65-115); Osmolality Calculated 287 mOsm/kg (285-295); Potassium 4.4 mmol/L (3.5-5.1); Sodium 137 mmol/L (136-145); Total Bilirubin 0.4 mg/dL (0.15-1.2); Total Protein 6.8 g/dL (6.6-8.7)
--- NOTE | 2021-04-12 18:17 | ONC FU_ITS ---
Dr. Jimenes follow up note Patient: Gordon Frost Unit #: [id number]: 1950 Dicatated By: Jimi Jimenes M.D.Date of Visit:Apr 12, 2021 Onc Med Follow-up/Prog Note History of Present Illness: Mr. Gordon frost, is a 71-year-old gentleman with history of microhematuria, underwent cystoscope evaluation which showed rare groups of urothelial cells with mild atypia, suspicious for low-grade papillary lesion. further evaluation including CT scan of abdomen pelvis was done on 07/17/2018 showed questionable right mid kidney posterior calyceal soft tissue prominence. And on 07/25/2018 patient underwent cystoscopy with right retrograde ureteropyelogram and right flexible ureteroscopy with biopsy by Dr. Gilbert. Which showed high-grade papillary urothelial carcinoma, patient underwent right nephroureterectomy on 09/06/2018 and final pathology report showed 3.2 x 1.5 x 1 cm papillary urothelial carcinoma, invasive high-grade and tumor invades renal parenchyma. Surgical margins clear. No lymphovascular invasion seen. No lymph nodes were assessed. Patient tolerated procedure well Postoperatively developed urine retention and severe lower abdominal pain requiring catheterization and still using it Patient is hard of hearing, he is a , said hearing loss is a job-related problem. Pathology was reviewed at pathology department at [facility] on 10/14/2018 as a part of consult and it confirmed that there was no renal parenchymal involvement thus lesion was downgraded to T2 from T3 originally from [place] biopsy report. Due to that he was not a candidate for adjuvant Keytruda clinical trial. And Dr. Flanagan recommended observation alone. Follow-up CT scan of abdomen pelvis done on 01/21/2019 showed status post right nephrectomy since prior study done on 07/17/2018 No adenopathy or residual mass in the right renal bed No adenopathy ascites or metastatic disease seen. Follow-up CT scan of the abdomen pelvis done on 05/12/2019 showed status post right nephrectomy, no concurrent mass or adenopathy in the renal bed. Negative left kidney. Follow-up CT done on September 11, 2019 showed no evidence of recurrence of disease status post right nephrectomy Patient was seen by Dr. Fields of nephrology on August 26, 2019 and his impression was prognosis for his renal function should be excellent Follow-up CT scan of abdomen pelvis done on February 27, 2020 showed no evidence of metastatic disease in the abdomen or pelvis, postoperative changes right nephrectomy, normal nephrectomy bed. Sigmoid diverticulosis. Mild diffuse fatty infiltration of the liver Follow-up CT scan of abdomen pelvis done on September 03, 2021 showed status post right nephrectomy, no recurrent mass at the renal bed, no lymphadenopathy. Normal left kidney. Chest x-ray showed no abnormality Came for follow-up, denies any specific complaints, no fever or chills, no nausea or vomiting, no diarrhea or constipation, no hematuria or dysuria, no hemoptysis or hematemesis, appetite is good Medications: Asmanex (120 Metered Doses) 2 Puff(s) (of 220 mcg/inh) Aerosol Powder, Breath Activated Inhalation daily, Omeprazole 1 Capsule (of 20 mg) Capsule Delayed Release Oral daily, traZODone HCl 0.5 Tablet (of 50 mg) Oral at bedtime Allergies: No Known Allergies. Review of Systems: Review of Systems is not available for this patient. Vital Signs: Performed on Apr 12, 2021 14:29 Height - 73.00 in Weight - 186.8 lbs (HIGH) BSA - 2.09 sq.m BMI - 24.65 Temperature - 98.5 F Pulse - 74 /min Respiration - 18 /min BP - 146/90 mm(hg) (HIGH) O2 Sat - 96 % Pain - 0 Fatigue - 0 Performance Status: 0 - Fully active, able to carry on all predisease activities without restrictions. (ECOG) Physical Examination: ENMT - No mouth sores, no thrush, no jaundice, Respiratory - Lungs are clear to auscultation, Cardiovascular - Regular rate and rhythm of heart, Abdomen - Soft, bowel sounds present, Extremities - No visible edema. Lab/Imaging: Most recent lab results are not available for this patient. Impression: Papillary urothelial carcinoma, invasive, high-grade involving right renal pelvis, status post right nephroureterectomy done on 09/06/2018 Final pathology report showed 3.2 x 1.5 x 1 cm tumor involving renal pelvis, clear surgical margins T3 As per pathology consult at pathology department at [facility] done on 10/14/2018, there was no evidence of parenchymal involvement so tumor was downgraded to T2 No lymphovascular invasion seen No lymph node sampling was done Nx, MX stage III , No further treatment but observation follow-up CT scan of abdomen pelvis done on April 05, 2022 shows status post right nephrectomy, no recurrent mass at the renal bed no lymphadenopathy, normal left kidney, chest x-ray no abnormality seen History of hearing loss now using hearing aid bilaterally Plan: Discussed with patient regarding his labs white blood count 6.6 hemoglobin 14.5 hematocrit 43.2 platelets 211,000 CMP within normal limits and follow-up CT scan of abdomen pelvis done on April 05, 2022 shows status post right nephrectomy, no recurrent mass at the renal bed no lymphadenopathy, normal left kidney, chest x-ray no abnormality seen Clinically, patient doing well with no new signs symptom suggestive of recurrence of disease his follow-up CT scan of abdomen pelvis and chest x-ray shows no recurrence. Lab work-up is within normal range, will continue to monitor return to clinic in 6 months with CBC CMP, chest x-ray and CT abdomen pelvis Signed By: Jimi Jimenes M.D. <<Signature on File>>
== END 2021-04-12 12:25 | disposition home or self-care (01) ==
PROVIDERS: PCP Emergency Medicine Emergency Medical Services; Visit Provider Internal Medicine Hematology & Oncology
DX: Z08 Encounter for follow-up examination after completed treatment for malignant neoplasm (principal); Z85.51 Personal history of malignant neoplasm of bladder; Z90.5 Acquired absence of kidney; H91.93 Unspecified hearing loss, bilateral
CPT/HCPCS: 36415; 80053; 85025; 99214

== ENCOUNTER → 2021-05-11 08:19 | Outpatient (BNVA) | payer OTHER, SELFPAY | PROVIDERS: PCP Emergency Medicine Emergency Medical Services; Visit Provider Internal Medicine | DX: Z20.822 Contact with and (suspected) exposure to COVID-19 (principal); Z01.812 Encounter for preprocedural laboratory examination | CPT/HCPCS: 87635 ==

== ENCOUNTER 2021-05-16 06:17 | Day surgery (SDC) | payer OTHER, SELFPAY ==
[2021-05-12 13:14] VITALS: BMI 24.4
--- NOTE | 2021-05-16 06:46 | P.ANESASSM_ITS ---
Pre-Anesthetic Assessment Height/Weight: Height 1.85 m Weight 83.915 kg Preop Diagnosis: His col polyps Operation Date: 05/16/21 08:15 Proposed Procedures p Colonoscopy [id number]/z86.010(Not Applicable) - Jalen Steve MD Familial anesthetic complications: none Was Beta Kristina taken within 24 hours: N/A Was Clonidine taken within 24 hours: N/A Last intake: > 8 hrs Social No alcohol and No tobacco Exam alert, oriented x 3, clear to auscultation bilaterally and regular rate & rhythm Airway Cervical ROM: within normal limits Mallampati: Class II Dentition: full Pulmonary Asthma allergies CV/HEM history of stress test showing possible old CA - no chest pains, no sob, no syncope, able to achieve 4 METS one kidney - removed d/t cancer GI Gastroesophageal Reflux Disease Anesthetic Plan ASA status: 3 Anesthesia: MAC Medications/Allergies Home Medications Medication Instructions Recorded Confirmed Last Taken Type mometasone 100 mcg/actuation HFA 2 puff INHALATION BID 09/02/20 05/12/21 Unknown History aerosol inhaler (Asmanex HFA) omeprazole 20 mg capsule,delayed 20 mg PO DAILY 09/02/20 05/12/21 Unknown History release trazodone 50 mg tablet 25 mg PO DAILY 09/02/20 05/12/21 Unknown History cholecalciferol (vitamin D3) 25 25 mcg PO DAILY 09/15/20 05/12/21 Unknown History mcg (1,000 unit) capsule multivitamin (One Daily 1 tab PO DAILY 09/15/20 05/12/21 Unknown History Multivitamin) betamethasone dipropionate 0.05 % 1 applic TOPICAL BID 04/21/21 05/12/21 Unknown History topical ointment hydrocodone 5 mg-acetaminophen 325 1 tab PO Q8H PRN 04/21/21 05/12/21 Unknown History mg tablet coenzyme Q10 400 mg capsule (Co 400 mg PO DAILY 05/04/21 05/12/21 Unknown History Q-10) zinc 50 mg tablet 100 mg PO DAILY tab 05/04/21 05/12/21 Unknown History Allergies Allergy/AdvReac Type Severity Reaction Status Date / Time No Known Allergies Allergy Verified 05/12/21 13:10 [facility] Anesthesia Medical History Elevated coronary artery calcium score GERD (gastroesophageal reflux disease) Malignant neoplasm of kidney excluding renal pelvis Surgical History History of hip surgery History of nephrectomy History of repair of rotator cuff Social History Smoking and tobacco status: former smoker Quit status (tobacco): has quit using tobacco Year quit tobacco: 1989 smoked cigars 2yrs Second hand smoke exposure: Yes Smoking risk assessment/counseling performed?: Yes Alcohol intake: never Lives independently: Yes Household members: spouse Marital status: service: Yes Current occupational status: retired Pets and animals: No History of recent travel: No Current gender identity: Male Data Anesthesia Cardiac Studies: No Data to Display
[2021-05-16 07:09] VITALS: BP 133/85; PULSE 71; RESP 16; TEMP 36.4; O2SAT 97
[2021-05-16] MEDS: sodium chloride 0.9% 1,000 ML 30 ML IV (07:20)
--- NOTE | 2021-05-16 07:46 | W.PM.OPSFHP ---
Same Day Surgery H&P Indication for Procedure/HPI DATE OF PROCEDURE: May 16, 2021 CHIEF COMPLAINT/INDICATIONFOR SURGICAL PROCEDURE: History of colon polyp PREOP DIAGNOSIS: His col polyps PLANNED PROCEDURE: Operation Date: 05/16/21 08:15 Proposed Procedures p Colonoscopy [id number]/z86.010(Not Applicable) - Jalen Steve MD Medications/Allergies* Home Medications Medication Instructions Recorded Confirmed Type mometasone 100 mcg/actuation HFA 2 puff INHALATION BID 09/02/20 05/16/21 History aerosol inhaler (Asmanex HFA) omeprazole 20 mg capsule,delayed 20 mg PO DAILY 09/02/20 05/16/21 History release trazodone 50 mg tablet 25 mg PO DAILY 09/02/20 05/16/21 History cholecalciferol (vitamin D3) 25 25 mcg PO DAILY 09/15/20 05/16/21 History mcg (1,000 unit) capsule multivitamin (One Daily 1 tab PO DAILY 09/15/20 05/16/21 History Multivitamin) betamethasone dipropionate 0.05 % 1 applic TOPICAL BID 04/21/21 05/16/21 History topical ointment hydrocodone 5 mg-acetaminophen 325 1 tab PO Q8H PRN 04/21/21 05/16/21 History mg tablet coenzyme Q10 400 mg capsule (Co 400 mg PO DAILY 05/04/21 05/16/21 History Q-10) zinc 50 mg tablet 100 mg PO DAILY tab 05/04/21 05/16/21 History Allergies/Adverse Reactions Allergy/AdvReac Type Severity Reaction Status Date / Time No Known Allergies Allergy Verified 05/12/21 13:10 Current Medications: Generic Name Dose Route Start Last Admin Trade Name Freq PRN Reason Stop Dose Admin Sodium Chloride 1,000 mls @ 30 mls/hr 05/16/21 06:30 05/16/21 07:20 Sodium Chloride 0.9% IV 30 mls/hr .Q24H NO Administration Pertinent History/Comorbid Conditions* Medical History (Updated 05/04/21 @ 14:41 by Jalen Steve MD) Elevated coronary artery calcium score GERD (gastroesophageal reflux disease) Malignant neoplasm of kidney excluding renal pelvis Surgical History (Updated 04/21/21 @ 13:49 by Evelyne Huddleston MD) History of hip surgery History of nephrectomy History of repair of rotator cuff Social History Smoking and tobacco status: former smoker Quit status (tobacco): has quit using tobacco Year quit tobacco: 1989 smoked cigars 2yrs Second hand smoke exposure: Yes Smoking risk assessment/counseling performed?: Yes Alcohol intake: never Lives independently: Yes Household members: spouse Marital status: service: Yes Current occupational status: retired Pets and animals: No History of recent travel: No Current gender identity: Male Pertinent Exam Findings alert, oriented x 3, clear to auscultation bilaterally, regular rate & rhythm, operative site marked and procedure specific exam findings Recommendations Surgery/Procedure today Coding Level of Care Code Acute Web Site Developer for Latricia Jang
[2021-05-16 08:55] VITALS: BP 139/93; PULSE 62; RESP 12; TEMP 36.1; O2SAT 96
--- NOTE | 2021-05-16 08:56 | ANE.PACU2 ---
Inpatient post-anesthesia follow up: Airway intact: Yes Vital signs: Temperature 97.6 F Pulse Rate 71 Respiratory Rate 16 Blood Pressure 133/85 Pulse Oximetry 97 Oxygen Delivery Me thod Room Air Oxygen Flow Rate Fraction of Inspir ed Oxygen Hydration adequate: Yes Nausea and vomiting: No Pain level: 1 Mental status: Baseline
[2021-05-16 09:11] VITALS: BP 142/80; PULSE 59; RESP 18; O2SAT 99
== END 2021-05-16 09:25 | disposition home or self-care (01) ==
PROVIDERS: PCP Emergency Medicine Emergency Medical Services; Visit Provider Internal Medicine
PROC: 0DJD8ZZ Inspection of Lower Intestinal Tract, Via Natural or Artificial Opening Endoscopic (ICD-10-PCS; CPT 45378; principal; 2021-05-16 08:15)
DX: Z12.11 Encounter for screening for malignant neoplasm of colon (principal); Z86.010 Personal history of colon polyps; I25.2 Old myocardial infarction; K21.9 Gastro-esophageal reflux disease without esophagitis
CPT/HCPCS: 45378; J2704; J7030

== ENCOUNTER 2021-07-21 06:00 | Outpatient (CLI) | payer OTHER, SELFPAY | END 2021-07-21 23:59 | disposition home or self-care (01) | PROVIDERS: PCP Emergency Medicine Emergency Medical Services; Visit Provider Internal Medicine Cardiovascular Disease | DX: I25.10 Atherosclerotic heart disease of native coronary artery without angina pectoris (principal); R94.31 Abnormal electrocardiogram [ECG] [EKG]; R93.1 Abnormal findings on diagnostic imaging of heart and coronary circulation; Z87.891 Personal history of nicotine dependence | CPT/HCPCS: 99213; 99214 ==

== ENCOUNTER 2021-08-17 07:27 | Outpatient (CLI) | payer OTHER, SELFPAY ==
[2021-08-17 08:44] VITALS: BMI 24.4
--- NOTE | 2021-08-17 08:44 | ECG_ITS ---
[facility] Test Date: 2021-08-17 Pat Name: Gordon Frost Department: Room: Gender: Male Web Project Manager: Jenny Yeh : 1950 Requested By: Evelyne Huddleston Order Number: [id number] Ronald MD: Evelyne Huddleston M.D. Interpretive Statements NAME OF STUDY: LEXISCAN SESTAMIBI STRESS TEST INDICATION: Chest Pain PROCEDURE: At the baseline blood pressure was 122/78 mm Hg with a heart rate of 61 beats/min. EKG showed sinus rhythm with a rate of 62 bpm. Extreme left axis deviation. Poor anterior R wave progression. Nonspecific T wave changes. Lexiscan was infused over a period of 20 seconds. A total of 0.4 milligrams of Lexiscan was infused. The stress phase was continued for a total of 5 minutes. Heart rate at the end of the stress phase was 71 bpm. The EKG at the peak infusion revealed no significant changes. Sestamibi was injected 20 seconds after the Lexiscan infusion. Blood pressure at the end of the recovery phase was no noted with a heart rate of 71 beats per minute. CONCLUSION: 1. No significant EKG changes with the LexiScan infusion. 2. No LexiScan induced chest pain. 3. Normal blood pressure and heart rate response 4. Sestamibi/sestamibi perfusion scan pending; see separate report. Electronically Signed On 08-27-2021 12:48:13 CDT by Evelyne Huddleston M.D. [id number]
--- NOTE | 2021-08-17 08:44 | NMCV_ITS ---
NM shoshana perf SPECT r/s* [id number] Gordon Frost Age: 71 Gender: M : 1950 Exam Date: 08/17/2021 08:44 Ordering Phys: Evelyne Huddleston MD ([email or web address]) Technologist: IAN Paige Exam [facility]: [facility] Indications: CHEST PAIN STRESS TEST Please see separate stress test report in [facility] for full findings IMAGE PROTOCOL Rest/Stress 1 Lexiscan Day Radiopharmaceutical Dose (mCi) Administration Site Administered by Rest: Tc-99m 11.0 IV IAN Paige Sestamibi Stress:Tc-99m 32.6 IV IAN Cook Sestamibi Rest: 17-Aug-2021 60 Discovery 630 Stress: 17-Aug-2021 30 Discovery 630 0.4mg Lexiscan. Supine position only as patient was unable to lay prone. SPECT RESULTS Technical Quality: Excellent Raw Data Analysis: Normal Image Corrections: No attenuation or motion correction applied Summed Stress Score: 0 Summed Rest Score: 4 Summed Difference Score: 0 PERFUSION FINDINGS Small sized perfusion abnormality of mild severity of mid to apical septal and apical inferior madrigal on rest images with improved tracer uptake on stress images. This is suggestive of attenuation artifact. FUNCTIONAL RESULTS (calculated via Gated SPECT) Stress Image LV EF (%): 66 Stress EDV (mL):104 TID: 0.82 Stress ESV (mL):35 FUNCTIONAL FINDINGS: The left ventricle is normal in size. Transient Ischemia Dilatation of 0.82. The left ventricular ejection fraction is normal with a value of 66%. There is normal left ventricular wall thickening with no regional wall motion abnormality. Normal end diastolic volume. IMPRESSIONS 1. Myocardial perfusion imaging is normal. 2. Overall left ventricular systolic function is normal without regional wall motion abnormalities, LVEF=66%. 3. EKG portion of the study will be reported separately. 4. Scan indicates low risk for cardiac events. Evelyne Huddleston MD (Electronically Signed) Final Date: 23 Aug 2021 12:41 S
[2021-08-17 10:09] VITALS: BP 122/78; PULSE 80
[2021-08-17] MEDS: regadenoson 0.4 Mg/5 ml Syringe IVP (10:09)
== END 2021-08-17 07:28 | disposition home or self-care (01) ==
LOC: CDL 07:30
PROVIDERS: PCP Emergency Medicine Emergency Medical Services; Visit Provider Internal Medicine Cardiovascular Disease
DX: R07.9 Chest pain, unspecified (principal)
CPT/HCPCS: 78452; 93017; A9500; J2785

== ENCOUNTER → 2021-10-10 10:23 | Outpatient (BNVA) | payer OTHER, SELFPAY | PROVIDERS: PCP Emergency Medicine Emergency Medical Services; Visit Provider Internal Medicine Pulmonary Disease | DX: J45.30 Mild persistent asthma, uncomplicated (principal); R05.9 Cough, unspecified; K44.9 Diaphragmatic hernia without obstruction or gangrene; Z91.09 Other allergy status, other than to drugs and biological substances; J30.1 Allergic rhinitis due to pollen; Z87.891 Personal history of nicotine dependence; R05.8 Other specified cough | CPT/HCPCS: 99214 ==

== ENCOUNTER 2021-11-18 09:30 | Oncology outpatient (recurring) (ONCR) | payer OTHER, SELFPAY ==
--- NOTE | 2021-11-08 11:12 | CT_ITS ---
WS: [id number] Exam: CT chest abd pel w con* Date/Time of Exam: 11/08/2021 11:23 AM Reason For Exam: Follow up DLP: 1825.[address] scans at [facility] use at least one of these dose optimization techniques: automated e xposure control; mA and/or kV adjustment per patient size (includes targeted exams where dose is matc hed to clinical indication); or iterative reconstruction. CT scan of the chest with IV contrast. No priors. The lungs are clear and fully expanded. No pulmonary mass or nodule identified. No mediastinal or hil ar lymphadenopathy. The thoracic aorta is normal in caliber. The central pulmonary arteries are clear . Coronary artery calcifications noted. No pleural or pericardial effusion. Prominent thyroid gland. The trachea and mainstem bronchi are patent. No destructive bone lesions are chest wall defects. CT/CT chest abd pel w con* IMPRESSION: 1. No sign of pulmonary mass or lymphadenopathy in the chest. 2. Triple vessel coronary artery calcifications. CT scan of the abdomen and pelvis with contrast. Comparison 04/05/2021. Several tiny liver cysts. The liver is otherwise unremarkable. The stomach is d istended with food and fluid. The pancreas and spleen appear normal. The abdomi nal aorta is normal in caliber. Normal adrenal glands. Right kidney is surgical ly absent. Compensatory hypertrophy of the left kidney. The left kidney functio ns and drains normally. The portal vein and IVC are patent. The gallbladder is collapsed but otherwise unremarkable in appearance. Small bowel loops are jerome l in caliber. No lymphadenopathy or free fluid in the abdomen or pelvis. No sig nificant large bowel abnormality seen. Moderate amount retained stool. No sign of acute appendicitis. No mass or lymphadenopathy in the pelvis. Unremarkable u rinary bladder. Left total hip replacement. Mild prostatomegaly. No significant abdominal wall defect. No destructive bone lesions. Tiny fat filled periumbili maximo hernia. IMPRESSION: 1. Status post right nephrectomy. No recurrent mass or adenopathy. 2. Unremarkable left kidney with compensatory hypertrophy. 3. Other minor findings as above.
[2021-11-08 12:53] LABS: Blood Urea Nitrogen 18 mg/dL (8-23); Glomerular Filtration Rate 66.4 mL/min (90-130)
[2021-11-08] MEDS: barium sulfate 450 mL Oral Susp PO (13:06)
[2021-11-08] MEDS: iodixanol 320 mg/mL 100mL Btl IV (13:06)
[2021-11-18 10:00] LABS: Basophils # 0.1 10^3/uL (0.0-0.1); Eosinophils # 0.2 10^3/uL (0.0-0.8); Eosinophils % 3.8 %; Hematocrit 41.6 % (42.0-52.0); Hemoglobin 14.2 g/dL (11.7-16.6); Lymphocytes # 1.7 10^3/uL (0.8-4.8); Lymphocytes % 28.2 %; Mean Corpuscular HGB Conc 34.1 g/dL (30.0-36.0); Mean Corpuscular Hemoglobin 32.7 pg (28.0-34.0); Mean Corpuscular Volume 95.9 fl (80-94); Mean Platelet Volume 10.8 fL (7.4-10.4); Monocytes # 0.7 10^3/uL (0.2-0.9); Monocytes % 11.1 %; Neutrophils # 3.27 10^3/uL (1.8-7.7); Neutrophils % 55.7 %; Nucleated Red Blood Cells % 0 %; Platelet Count 179 10^3/cmm (130-400); Red Blood Count 4.34 10^6/uL (4.1-5.3); Red Cell Distribution Width 12.4 % (12.1-15.1); White Blood Count 5.9 10^3/uL (4.0-10.0)
[2021-11-18 10:33] LABS: Alanine Aminotransferase 16 U/L (0-41); Albumin Level 4.2 g/dL (3.5-5.2); Alkaline Phosphatase 85 U/L (40-130); Anion Gap 13.1 (5-19); Aspartate Amino Transferase 21 U/L (0-40); Blood Urea Nitrogen 17 mg/dL (8-23); Carbon Dioxide 29 mmol/L (22-29); Chloride 102 mmol/L (98-107); Glomerular Filtration Rate 54.7 mL/min (90-130); Glucose 92 mg/dL (65-115); Osmolality Calculated 291 mOsm/kg (285-295); Potassium 4.1 mmol/L (3.5-5.1); Sodium 140 mmol/L (136-145); Total Bilirubin 0.5 mg/dL (0.15-1.2); Total Protein 7.2 g/dL (6.6-8.7)
== END 2021-11-23 23:59 | disposition home or self-care (01) ==
PROVIDERS: Internal Medicine Gastroenterology; PCP Emergency Medicine Emergency Medical Services; Visit Provider Internal Medicine Hematology & Oncology
DX: Z08 Encounter for follow-up examination after completed treatment for malignant neoplasm (principal); Z85.528 Personal history of other malignant neoplasm of kidney; Z90.5 Acquired absence of kidney; Z87.891 Personal history of nicotine dependence
CPT/HCPCS: 71260; 74177; 80053; 82565; 84520; 85025; 99214; G0463

== ENCOUNTER 2021-12-21 11:51 | Outpatient (CLI) | payer OTHER, SELFPAY ==
--- NOTE | 2021-12-21 12:26 | CT_ITS ---
WS: [id number] CT CALCIUM SCORE REASON FOR VISIT: SURVEILLANCE; Coronary artery disease risk assessment COMPARISON: None TECHNIQUE: Noncontrast coronary CT in combination with quantitative analysis performed on a separate workstation were used to determine CACS (Agatston score) TOTAL EXAM DOSE: 70.91 ECG GATING: Prospective SCAN RANGE: Pulmonary artery bifurcation to Inferior aspect of heart COMPLICATIONS: None FINDINGS: Technical Quality/Examination Quality: Good Limitaiton: None OVERALL SCORES Total calcium score: 2192 Total volume score: 1736 mm3 Percentile: 90-100 % ARTERY SCORES Left anterior descending artery: 960 Left circumflex artery: 375 Right coronary artery: 857 OTHER FINDINGS: Mediastinum: No visualized mediastinal or hilar lymphadenopathy. Thoracic aorta: Normal caliber. Lungs: Mild chronic emphysematous changes. Visualized lungs are well aerated. Upper Abdomen: Normal. MINIMAL: 1-10 MILD: 11-100 MODERATE: 101-400 SEVERE:>400 CT/CT heart w calcium score 26115 IMPRESSION: 1. Total calcium score 2192 2. Total calcium score places patient between the 90th-100th percentile for ma les between the ages of 65 and 69. 3. Findings compatible with extensive calcified atherosclerotic plaque. GRADING OF CORONARY ARTERY DISEASE (BASED ON TOTAL CALCIUM SCORE) NO EVIDENCE OF CAD: 0 calcium score
== END 2021-12-21 11:52 | disposition home or self-care (01) ==
PROVIDERS: PCP Emergency Medicine Emergency Medical Services; Visit Provider Emergency Medicine Emergency Medical Services
DX: Z01.89 Encounter for other specified special examinations (principal); I25.10 Atherosclerotic heart disease of native coronary artery without angina pectoris
CPT/HCPCS: 75571

== ENCOUNTER → 2022-01-10 13:49 | Outpatient (BNVA) | payer OTHER, SELFPAY | PROVIDERS: PCP Emergency Medicine Emergency Medical Services; Visit Provider Internal Medicine Cardiovascular Disease | DX: R06.02 Shortness of breath (principal); I25.10 Atherosclerotic heart disease of native coronary artery without angina pectoris; R93.1 Abnormal findings on diagnostic imaging of heart and coronary circulation; K21.9 Gastro-esophageal reflux disease without esophagitis; Z87.891 Personal history of nicotine dependence | CPT/HCPCS: 99214 ==

== ENCOUNTER → 2022-06-02 09:02 | Outpatient (BNVA) | payer OTHER, SELFPAY | PROVIDERS: PCP Emergency Medicine Emergency Medical Services; Visit Provider Internal Medicine Pulmonary Disease | DX: J45.30 Mild persistent asthma, uncomplicated (principal); K44.9 Diaphragmatic hernia without obstruction or gangrene; Z91.09 Other allergy status, other than to drugs and biological substances; J30.1 Allergic rhinitis due to pollen; J82.83 Eosinophilic asthma; Z87.891 Personal history of nicotine dependence | CPT/HCPCS: 99214 ==

== ENCOUNTER 2022-07-13 11:32 | Outpatient (CLI) | payer OTHER, SELFPAY ==
[2022-07-13] MEDS: iohexol 350 mg/mL 500 mL Btl (per mL) IV (11:59)
--- NOTE | 2022-07-13 13:00 | CTR_ITS ---
PROCEDURE INFORMATION: Exam: CT Abdomen And Pelvis With Contrast Exam date and time: 07/13/2022 12:45 PM Age: 72 years old Clinical indication: Condition or disease; Cancer; Kidney, right; Prior surgery; Surgery type: Hip, RT nephrectomy, appy; Additional info: Surveillance TECHNIQUE: Imaging protocol: Computed tomography of the abdomen and pelvis with contrast. Radiation optimization: All CT scans at this facility use at least one of these dose optimization techniques: automated exposure control; mA and/or kV adjustment per patient size (includes targeted exams where dose is matched to clinical indication); or iterative reconstruction. Contrast material: OMNI 350; Contrast volume: 100 ml; Contrast route: INTRAVENOUS (IV); REPORTING DATA: Count of CT and Cardiac NM exams in prior 12 months: This patient has received 3 known CTs and 0 known cardiac nuclear medicine studies in the 12 months prior to the current study. COMPARISON: CT chest abdpel w/*[id number] 11/08/2021 12:56 PM RADIATION DOSE METRICS: Total DLP (mGy-cm): 371.79 FINDINGS: Liver: Normal. No mass. Gallbladder and bile ducts: Normal. No calcified stones. No ductal dilation. Pancreas: Normal. No ductal dilation. Spleen: Normal. No splenomegaly. Adrenal glands: Normal. No mass. Kidneys and ureters: Right kidney is absent. Stomach and bowel: Bysa-ca-[id number] constipation. Appendix: No evidence of appendicitis. Intraperitoneal space: Unremarkable. No free air. No significant fluid collection. Vasculature: Unremarkable. No abdominal aortic aneurysm. Lymph nodes: Unremarkable. No enlarged lymph nodes. Urinary bladder: Unremarkable as visualized. Reproductive: Unremarkable as visualized. Bones/joints: Left hip arthroplasty changes in place. Soft tissues: Unremarkable. CT/CT abdomen pelvis w con* [id number] IMPRESSION: 1. Negative for adenopathy or concerning mass lesion. 2. Right kidney is absent. 3. [id number] constipation.
[2022-07-13 14:10] LABS: Blood Urea Nitrogen 14 mg/dL (8-23); Glomerular Filtration Rate 50.1 mL/min (90-130)
== END 2022-07-13 11:33 | disposition home or self-care (01) ==
LOC: RAD 11:37
PROVIDERS: PCP Emergency Medicine Emergency Medical Services; Visit Provider Internal Medicine Hematology & Oncology
DX: C65.1 Malignant neoplasm of right renal pelvis (principal); K59.00 Constipation, unspecified; Z90.5 Acquired absence of kidney
CPT/HCPCS: 74177; 82565; 84520; Q9967

== ENCOUNTER 2022-08-11 07:24 | Oncology outpatient (recurring) (ONCR) | payer OTHER, SELFPAY ==
[2022-08-01 12:10] LABS: Alanine Aminotransferase 28 U/L (0-41); Albumin Level 4.4 g/dL (3.5-5.2); Alkaline Phosphatase 86 U/L (40-130); Anion Gap 12.4 (5-19); Aspartate Amino Transferase 28 U/L (0-40); Blood Urea Nitrogen 17 mg/dL (8-23); Carbon Dioxide 28 mmol/L (22-29); Chloride 101 mmol/L (98-107); Globulin 2.4 g/dL (1.3-4.6); Glomerular Filtration Rate 54.6 mL/min (90-130); Glucose 88 mg/dL (65-115); Osmolality Calculated 285 mOsm/kg (285-295); Potassium 4.4 mmol/L (3.5-5.1); Sodium 137 mmol/L (136-145); Total Bilirubin 0.6 mg/dL (0.15-1.2); Total Protein 6.8 g/dL (6.6-8.7)
[2022-08-11 07:37] LABS: Basophils # 0.1 10^3/uL (0.0-0.1); Eosinophils # 0.2 10^3/uL (0.0-0.8); Eosinophils % 2.9 %; Hematocrit 44.3 % (42.0-52.0); Hemoglobin 14.4 g/dL (11.7-16.6); Lymphocytes # 1.7 10^3/uL (0.8-4.8); Lymphocytes % 33.9 %; Mean Corpuscular HGB Conc 32.5 g/dL (30.0-36.0); Mean Corpuscular Hemoglobin 31.9 pg (28.0-34.0); Mean Platelet Volume 11.6 fL (7.4-10.4); Monocytes # 0.6 10^3/uL (0.2-0.9); Monocytes % 11.1 %; Neutrophils # 2.61 10^3/uL (1.8-7.7); Neutrophils % 50.9 %; Nucleated Red Blood Cells % 0 %; Platelet Count 185 10^3/cmm (130-400); Red Blood Count 4.52 10^6/uL (4.1-5.3); Red Cell Distribution Width 12.7 % (12.1-15.1); White Blood Count 5.1 10^3/uL (4.0-10.0)
--- NOTE | 2022-08-11 07:39 | XR_ITS ---
WS: [id number] Chest 2 views, 08/11/2022 Clinical Data: renal cancer Comparison: Two-view chest, 04/05/2021 Findings: No nodules, masses or effusions are seen. The heart is normal. The pulmonary vascularity is not increased. No pneumonia or pneumothorax is seen. Diaphragms are flattened. XR/XR chest 2V* [id number] Impression: Hyperinflation.
== END 2022-08-23 23:59 | disposition home or self-care (01) ==
PROVIDERS: Nurse Practitioner Family; PCP Emergency Medicine Emergency Medical Services; Visit Provider Internal Medicine Hematology & Oncology
DX: C65.1 Malignant neoplasm of right renal pelvis (principal)
CPT/HCPCS: 36415; 71046; 80053; 85025; 99214

== ENCOUNTER 2023-01-29 10:48 | Oncology outpatient (recurring) (ONCR) | payer OTHER, SELFPAY ==
[2023-01-29 12:06] LABS: Basophils # 0.1 10^3/uL (0.0-0.1); Basophils % 1.1 %; Eosinophils # 0.1 10^3/uL (0.0-0.8); Eosinophils % 1.3 %; Hematocrit 43.5 % (37-53); Lymphocytes # 1.6 10^3/uL (0.8-4.8); Lymphocytes % 29.3 %; Mean Corpuscular HGB Conc 33.3 g/dL (30-55); Mean Corpuscular Hemoglobin 32.6 pg (27-33); Mean Corpuscular Volume 97.8 fl (82-101); Monocytes # 0.7 10^3/uL (0.2-0.9); Monocytes % 12.3 %; Neutrophils # 3.08 10^3/uL (1.8-7.7); Neutrophils % 55.6 %; Nucleated Red Blood Cells % 0 %; Platelet Count 188 10^3/cmm (157-399); Red Blood Count 4.45 10^6/uL (3.85-5.65); Red Cell Distribution Width 12.4 % (12.1-15.1); White Blood Count 5.53 10^3/uL (3.29-11.43)
[2023-01-29 12:37] LABS: Alanine Aminotransferase 17 U/L (0-41); Albumin Level 4.3 g/dL (3.5-5.2); Alkaline Phosphatase 112 U/L (40-130); Aspartate Amino Transferase 25 U/L (0-40); Blood Urea Nitrogen 17 mg/dL (8-23); Carbon Dioxide 26 mmol/L (22-29); Chloride 100 mmol/L (98-107); Globulin 2.6 g/dL (1.3-4.6); Glomerular Filtration Rate 59.9 mL/min (90-130); Glucose 96 mg/dL (65-115); Osmolality Calculated 283 mOsm/kg (285-295); Sodium 136 mmol/L (136-145); Total Bilirubin 0.6 mg/dL (0.15-1.2); Total Protein 6.9 g/dL (6.6-8.7)
[2023-01-29 12:39] LABS: Anion Gap 14.3 (5-19); Potassium 4.3 mmol/L (3.5-5.1)
== END 2023-02-22 23:59 | disposition home or self-care (01) ==
PROVIDERS: Nurse Practitioner Family; PCP Emergency Medicine Emergency Medical Services; Visit Provider Internal Medicine Hematology & Oncology
DX: C65.1 Malignant neoplasm of right renal pelvis (principal); Z79.899 Other long term (current) drug therapy; Z87.891 Personal history of nicotine dependence
CPT/HCPCS: 36415; 80053; 85025; 99214

== ENCOUNTER 2023-07-31 07:28 | Outpatient (CLI) | payer OTHER, SELFPAY ==
[2023-07-31] MEDS: barium sulfate 450 mL Oral Susp PO (08:02)
--- NOTE | 2023-07-31 08:30 | CT_ITS ---
WS: [id number] CT ABDOMEN AND PELVIS WITH CONTRAST HISTORY: Follow-up kidney cancer. TECHNIQUE: Imaging performed of the abdomen and pelvis with IV contrast. Single phase imaging of the abdomen. Coronal and sagittal reformats are submitted. All CT scans at [facility] use at [address] [facility] one of these dose optimization techniques: automated exposure control; mA and/or kV adjustment per patient size (includes targeted exams where dose is matched to clinical indication); or iterative re construction. IV CONTRAST: Omnipaque 350; 100 mL IV. Oral contrast: Yes. DLP: 356.40 mGy.cm COMPARISON: 07/13/2022 Lower thorax: Lung bases are clear. Heart is normal size. Small hiatal hernia. Liver/biliary system: Normal size with no intrahepatic dilatation. Gallbladder: Normal. No gallstones or wall thickening. No pericholecystic fluid. Pancreas: Normal size pancreas and pancreatic duct. No adjacent inflammation. Spleen: Normal size spleen. No mass or infarct. Adrenal glands: Normal. Right kidney: Prior RIGHT nephrectomy. No recurrent mass in the renal bed. Left kidney: Normal. Aorta: Mild atherosclerosis with no aneurysm. Lymphadenopathy: None. Free fluid: None. GI tract: Prior appendectomy. No obstruction. Constipation. Abdominal wall: Unremarkable abdominal wall. No hernia. Pelvis: Mildly distended urinary bladder. No free fluid or adenopathy. Bones: Mild compression deformities involving L3 and L4 are stable. No expansile bone lesions. Stable lytic lesion RIGHT femoral neck. Prior LEFT hip arthroplasty. CT/CT abdomen pelvis w con* [id number] IMPRESSION: 1. Status post RIGHT nephrectomy. No recurrent mass in the renal bed. 2. No adenopathy or ascites. 3. Mild atherosclerosis aorta. 4. Moderate constipation. 5. Prior LEFT hip arthroplasty.
[2023-07-31 08:56] LABS: Blood Urea Nitrogen 14 mg/dL (8-23)
[2023-07-31] MEDS: iohexol 350 mg/mL 500 mL Btl (per mL) IV (09:21)
== END 2023-07-31 07:29 | disposition home or self-care (01) ==
LOC: RAD 07:28
PROVIDERS: PCP Emergency Medicine Emergency Medical Services; Visit Provider Nurse Practitioner Family
DX: C65.1 Malignant neoplasm of right renal pelvis (principal); K59.00 Constipation, unspecified; I70.0 Atherosclerosis of aorta
CPT/HCPCS: 74177; 82565; 84520; Q9967

== ENCOUNTER 2023-08-06 09:26 | Oncology outpatient (recurring) (ONCR) | payer OTHER, SELFPAY ==
[2023-08-06 10:03] LABS: Basophils # 0.1 10^3/uL (0.0-0.1); Basophils % 1.2 %; Eosinophils # 0.1 10^3/uL (0.0-0.8); Eosinophils % 2.1 %; Hematocrit 43.3 % (37-53); Lymphocytes # 1.5 10^3/uL (0.8-4.8); Lymphocytes % 28.1 %; Mean Corpuscular HGB Conc 33.3 g/dL (30-55); Mean Corpuscular Hemoglobin 32.9 pg (27-33); Mean Corpuscular Volume 98.9 fl (82-101); Mean Platelet Volume 11.3 fL (7.4-10.4); Monocytes # 0.5 10^3/uL (0.2-0.9); Monocytes % 10.2 %; Neutrophils # 3.02 10^3/uL (1.8-7.7); Neutrophils % 58.2 %; Nucleated Red Blood Cells % 0 %; Platelet Count 199 10^3/cmm (157-399); Red Blood Count 4.38 10^6/uL (3.85-5.65); Red Cell Distribution Width 12.7 % (12.1-15.1); White Blood Count 5.19 10^3/uL (3.29-11.43)
[2023-08-06 10:24] LABS: Alanine Aminotransferase 17 U/L (0-41); Albumin Level 4.2 g/dL (3.5-5.2); Alkaline Phosphatase 84 U/L (40-130); Anion Gap 14.2 (5-19); Aspartate Amino Transferase 22 U/L (0-40); Blood Urea Nitrogen 19 mg/dL (8-23); Calcium 9.2 mg/dL (8.5-10.5); Carbon Dioxide 26 mmol/L (22-29); Chloride 100 mmol/L (98-107); Globulin 2.9 g/dL (1.3-4.6); Glucose 103 mg/dL (65-115); Osmolality Calculated 285 mOsm/kg (285-295); Potassium 4.2 mmol/L (3.5-5.1); Sodium 136 mmol/L (136-145); Total Bilirubin 0.4 mg/dL (0.15-1.2); Total Protein 7.1 g/dL (6.6-8.7)
== END 2023-08-24 23:59 | disposition home or self-care (01) ==
PROVIDERS: Nurse Practitioner Family; PCP Emergency Medicine Emergency Medical Services; Visit Provider Internal Medicine Hematology & Oncology
DX: Z79.899 Other long term (current) drug therapy; Z87.891 Personal history of nicotine dependence; Z53.9 Procedure and treatment not carried out, unspecified reason; Z08 Encounter for follow-up examination after completed treatment for malignant neoplasm; Z85.53 Personal history of malignant neoplasm of renal pelvis; Z90.5 Acquired absence of kidney
CPT/HCPCS: 36415; 80053; 85025; 99213

== ENCOUNTER 2024-07-31 09:17 | Oncology outpatient (recurring) (ONCR) | payer OTHER, SELFPAY ==
[2024-07-31 09:42] LABS: Basophils % 0.7 %; Eosinophils # 0.1 10^3/uL (0.0-0.8); Hematocrit 42.8 % (37-53); Lymphocytes # 1.5 10^3/uL (0.8-4.8); Lymphocytes % 26.1 %; Mean Corpuscular HGB Conc 32.7 g/dL (30-55); Mean Corpuscular Hemoglobin 31.9 pg (27-33); Mean Corpuscular Volume 97.5 fl (82-101); Mean Platelet Volume 10.8 fL (7.4-10.4); Monocytes # 0.5 10^3/uL (0.2-0.9); Monocytes % 8.3 %; Neutrophils # 3.68 10^3/uL (1.8-7.7); Neutrophils % 63.7 %; Nucleated Red Blood Cells % 0 %; Platelet Count 228 10^3/cmm (157-399); Red Blood Count 4.39 10^6/uL (3.85-5.65); Red Cell Distribution Width 12.2 % (12.1-15.1); White Blood Count 5.78 10^3/uL (3.29-11.43)
[2024-07-31 10:00] LABS: Alanine Aminotransferase 17 U/L (0-41); Albumin Level 4.1 g/dL (3.5-5.2); Alkaline Phosphatase 73 U/L (40-130); Anion Gap 14.2 (5-19); Aspartate Amino Transferase 23 U/L (0-40); Blood Urea Nitrogen 16 mg/dL (8-23); Calcium 9.4 mg/dL (8.5-10.5); Carbon Dioxide 28 mmol/L (22-29); Chloride 100 mmol/L (98-107); Globulin 2.7 g/dL (1.3-4.6); Glucose 99 mg/dL (65-115); Osmolality Calculated 287 mOsm/kg (285-295); Potassium 4.2 mmol/L (3.5-5.1); Sodium 138 mmol/L (136-145); Total Bilirubin 0.5 mg/dL (0.15-1.2); Total Protein 6.8 g/dL (6.6-8.7)
== END 2024-08-23 23:59 | disposition home or self-care (01) ==
PROVIDERS: Nurse Practitioner Family; PCP Emergency Medicine Emergency Medical Services; Visit Provider Internal Medicine
DX: C65.1 Malignant neoplasm of right renal pelvis (principal)
CPT/HCPCS: 36415; 80053; 85025; 99214